=== PATIENT | male | born 1950 | race Caucasian/White ===

== ENCOUNTER 2017-01-29 16:01 | Emergency (ER) | payer SELFPAY ==
[~2017-01-29] VITALS: Ht 182.9 cm; Wt 104.3 kg
[2017-01-29 16:01] VITALS: BP 0/0
[2017-01-29] MEDS ORDERED: EPINEPHrine HCL 1 MG/10 ML SYRG IV ONE (16:02)
[2017-01-29] MEDS ORDERED: CALCIUM CHLOR(10%) 100MG/ML 10ML SYRINGE IV ONE (16:02)
[2017-01-29] MEDS ORDERED: SODIUM BICARBONATE 8.4% INJ 50ML SYRINGE IV ONE (16:02)
[2017-01-29] MEDS ORDERED: DEXTROSE (50%) 50ML SYRG IV ONE (16:02)
== END 2017-01-29 18:43 | disposition expired ==
LOC: ER 16:01 → EDBD 16:01 → ER 18:43
DX: I46.9 Cardiac arrest, cause unspecified (principal); I50.9 Heart failure, unspecified; Z95.0 Presence of cardiac pacemaker
CPT/HCPCS: 92950; 99285; J0171; J7042